=== PATIENT | female | born 1995 | race Caucasian/White ===

== ENCOUNTER 2021-05-31 06:14 | Outpatient (REF) | payer BC, SELFPAY ==
[2021-05-31 12:04] LABS: Hematocrit 43.5 % (37.0-47.0); Mean Corpuscular HGB Conc 34.5 g/dl (31.0-35.0); Mean Corpuscular Hemoglobin 30.5 pg (27.0-33.0); Mean Corpuscular Volume 88.6 fL (80.0-98.0); Mean Platelet Volume 10.7 fL (9.4-12.3); Platelet Count 282 X10*3/uL (160-400); Red Blood Count 4.91 X10*6/uL (4.20-5.50); White Blood Count 6.9 X10*3/uL (4.8-10.8)
[2021-05-31 12:06] LABS: Estimated Average Glucose 74 mg/dL; Hemoglobin A1c % 4.2 %
[2021-05-31 12:09] LABS: Alanine Aminotransferase 10 U/L (0-31); Albumin Level 4.2 g/dL (3.5-5.0); Alkaline Phosphatase 75 U/L (39-117); Anion Gap 17 (12-20); Aspartate Amino Transferase 13 U/L (5-31); Bilirubin Direct 0.5 mg/dL (0.0-0.5); Bilirubin Total 1.4 mg/dL (0.0-1.0); Blood Urea Nitrogen 7 mg/dL (9-16); Carbon Dioxide 18 mmol/L (22-29); Chloride 108 mmol/L (96-108); Cholesterol 189 mg/dL; Estimated Glomerular Filt Rate > 60; Glucose Random 91 mg/dL (60-115); HDL Cholesterol 54 mg/dL; LDL Cholesterol Calculated 118 mg/dl; Potassium 3.7 mmol/L (3.3-5.1); Sodium 139 mmol/L (135-145); Total Protein 6.9 g/dL (6.5-8.0); Triglycerides 85 mg/dL
[2021-05-31 12:31] LABS: Thyroid Stimulating Hormone 8.08 uIU/mL (0.32-4.0)
[2021-05-31 12:40] LABS: Reflex LDLD? No
== END 2021-05-31 06:15 | disposition home or self-care (01) ==
LOC: HO.HMGCLDS 06:14
PROVIDERS: Visit Provider Internal Medicine
DX: Z00.00 Encounter for general adult medical examination without abnormal findings (principal)
CPT/HCPCS: 36415; 80048; 80061; 80076; 83036; 84443; 85027

== ENCOUNTER 2021-06-19 07:24 | Outpatient (REF) | payer BC, SELFPAY ==
[2021-06-19 12:21] LABS: Free T4 (Free Thyroxine) 0.95 ng/dL (0.71-1.85); Thyroid Stimulating Hormone 7.63 uIU/mL (0.32-4.0)
== END 2021-06-19 07:25 | disposition home or self-care (01) ==
LOC: HO.HMGCLDS 07:24
PROVIDERS: PCP Internal Medicine; Visit Provider Internal Medicine
DX: R79.89 Other specified abnormal findings of blood chemistry (principal)
CPT/HCPCS: 36415; 84439; 84443